=== PATIENT | female | born 1955 | race Caucasian/White ===

== ENCOUNTER 2020-01-13 13:54 | Outpatient (CLI) | payer MEDICAID | END 2020-01-13 13:55 | disposition home or self-care (01) | LOC: COV 13:54 | PROVIDERS: ATTEND Family Medicine | DX: Z01.812 Encounter for preprocedural laboratory examination (principal); Z20.828 Contact with and (suspected) exposure to other viral communicable diseases ==

== ENCOUNTER 2020-02-19 07:57 | Emergency (ER) | payer MEDICAID ==
--- NOTE | 2020-02-19 08:08 | ED Physician Documentation ---
PD HPI Fall - Stated complaint Stated Complaint: FALL - History obtained from History obtained from: Patient - Additional information Additional information: Took a trip and fall at home this morning. She landed on hands and knees but twisted the right ankle and that is the only place that hurts. No other injuries. She is able to walk and bear weight but slowly. Declines pain medication on initial evaluation. Review of Systems Constitutional: reports: Reviewed and negative Cardiac: reports: Reviewed and negative Respiratory: reports: Reviewed and negative PD PAST MEDICAL HISTORY - Present Medications Home Medications: Ambulatory Orders Medication Instructions Recorded Confirmed Knee Scooter 1 unit TD ONCE #1 02/19/20 - Allergies Allergies/Adverse Reactions: Allergies Allergy/AdvReac Type Severity Reaction Status Date / Time Sulfa (Sulfonamide Allergy Unknown Verified 02/19/20 08:07 Antibiotics) PD ED PE NORMAL - Vitals Vital signs reviewed: Yes - General General: Alert and oriented X 3, No acute distress - Extremities Extremities: Other (A lot of swelling about the lateral malleolus with very mild tenderness. No tenderness over the ATFL. No proximal fibular or foot tenderness.) - Neuro Neuro: Alert and oriented X 3, Normal speech Results - Vitals Vitals: Vital Signs - 24 hr 02/19/20 02/19/20 08:06 08:49 Temperature 36.7 C Heart Rate 71 64 Respiratory 18 18 Rate Blood Pressure 138/68 H 102/84 H O2 Saturation 98 99 Oxygen O2 Source Room air - Rads (name of study) R ankle 3v Radiology: Final report received (Mildly displaced distal fibular and posterior malleolar fractures), EMP read contemporaneously Procedures - Splint (location) RLE Splint applied by: Nurse Type of splint: Fiberglass, Short leg, Posterior Other: Patient tolerated well, No complications, Neurovascular intact, Crutches provided Departure - Departure Disposition: 01 Home, Self Care Clinical Impression: Closed fracture of right distal fibula Qualifiers: Encounter type: initial encounter Fracture morphology: other fracture Qualified Code(s): S82.831A - Other fracture of upper and lower end of right fibula, initial encounter for closed fracture Condition: Good Record reviewed to determine appropriate education?: Yes Instructions: ED Fx Lower Ext Follow-Up: [facility] [Provider Group] Prescriptions: Knee Scooter 1 unit TD ONCE #1 Comments: Follow-up with the orthopedics office within 1 week, call Friday for an appointment. Keep the leg elevated. Keep the splint on and dry, do not walk or bear weight on the right leg. If your insurance requires a referral for specialist evaluation, also call your primary care physician on Friday.
--- NOTE | 2020-02-19 08:33 | XRAY Report ---
PROCEDURE: Ankle 3 View RT INDICATIONS: ankle inj TECHNIQUE: 3 views of the ankle were acquired. COMPARISON: None. FINDINGS: Bones: Acute, mildly displaced oblique fracture of the distal right fibula. There is a posterior mall eolus fracture with intra-articular extension. Prominent plantar calcaneal and retrocalcaneal entheso phytes. Ankle mortise is preserved. No suspicious bony lesions. Soft tissues: Small anterior tibiotalar joint effusion. Achilles tendon appears normal. IMPRESSION: 1. Mildly displaced, intra-articular posterior malleolar fracture of the distal right tibia. 2. Mildly displaced distal right fibular fracture. Reviewed by: Luis Lin MD on 02/19/2020 8:32 AM PDT Approved by: Luis Lin MD on 02/19/2020 8:32 AM PDT Station ID: [id number]
[2020-02-19 08:50] VITALS: BP 102/84
== END 2020-02-19 09:01 | disposition home or self-care (01) ==
LOC: ED 07:57
DX: S82.51XA Displaced fracture of medial malleolus of right tibia, initial encounter for closed fracture (principal); S82.831A Other fracture of upper and lower end of right fibula, initial encounter for closed fracture; W01.0XXA Fall on same level from slipping, tripping and stumbling without subsequent striking against object, initial encounter; X50.1XXA Overexertion from prolonged static or awkward postures, initial encounter; Y92.009 Unspecified place in unspecified non-institutional (private) residence as the place of occurrence of the external cause
CPT/HCPCS: 29515; 99283